=== PATIENT | female | born 1960 | race Caucasian/White ===

== ENCOUNTER 2018-08-28 15:49 | Inpatient (IN) | payer BC ==
[2018-08-28] VITALS (7 sets, daily range): BP systolic 107–154; BP diastolic 58–75
[~2018-08-28] VITALS: Ht 167.6 cm; Wt 70.8 kg
[2018-08-28] MEDS ORDERED: diazePAM 5 MG TABLET PO ONE (16:15)
[2018-08-28] MEDS ORDERED: KETOROLAC 60 MG/2 ML VIAL. IM ONE (16:15)
[2018-08-28] MEDS ORDERED: MORPHINE SULFATE 10 MG/ML VIAL. IM ONE (16:15)
[2018-08-28] MEDS ORDERED: methylPREDNISolone SOD SUCC PF 125 MG/2 ML VIAL. IM ONE (16:15)
[2018-08-28] MEDS ORDERED: KETOROLAC 30 MG/ML VIAL. IV ONE (16:30)
[2018-08-28] MEDS ORDERED: methylPREDNISolone SOD SUCC PF 125 MG/2 ML VIAL. IV ONE (16:30)
[2018-08-28] MEDS ORDERED: MORPHINE SULFATE 10 MG/ML VIAL. IV ONE (16:30)
[2018-08-28] MEDS ORDERED: HYDROcodone/APAP 5/325MG 1 TAB TABLET PO ONE (18:15)
--- NOTE | 2018-08-28 18:58 | PHYS DOC ---
Past Medical History Past Medical History: Fibromyalgia, GERD, High Cholesterol (ALEJANDRA ALONZO APRN) Past Surgical History: Cervical Fusion, Lumbar Laminectomy (ALEJANDRA ALONZO APRN) Alcohol Use: None Drug Use: None (ALEJANDRA ALONZO APRN) Adult General Chief Complaint Chief Complaint: LOWER BACK PAIN OR INJURY HPI HPI Patient is a 57 year old female with a history of fibromyalgia, neck surgeries, who presents to the ED today complaining of severe low back pain that began today. Patient states she was walking her dog, she states the dog is approximately 200 pounds, the dog was on a leash, the dog started chasing after somebody else and pulled her. Patient states since then she's had pain. Patient states the pain radiates to the right lower extremity. Denies any loss of bowel bladder function. Denies any numbness to bilateral lower extremities. (ALEJANDRA ALONZO APRN) Review of Systems Review of Systems Constitutional: Denies fever or chills [] GI: Denies abdominal pain, nausea, vomiting, bloody stools or diarrhea [] : Denies dysuria or hematuria [] Musculoskeletal: Reports low back pain Integument: Denies rash or skin lesions [] Neurologic: Denies headache, focal weakness or sensory changes [] All other systems were reviewed and found to be within normal limits, except as documented in this note. (ALEJANDRA ALONZO APRN) Current Medications Current Medications Current Medications Medications (Trade) Dose Ordered Sig/João Start Time Stop Time Status Last Admin Dose Admin Acetaminophen/ Hydrocodone Bitart (Lortab 5/325) 1 tab 1X ONCE 08/28/18 18:15 08/28/18 18:16 DC 08/28/18 18:18 1 TAB Diazepam (Valium) 5 mg 1X ONCE 08/28/18 16:15 08/28/18 16:16 DC 08/28/18 16:25 5 MG Ketorolac Tromethamine (Toradol 30mg Vial) 30 mg 1X ONCE 08/28/18 16:30 08/28/18 16:32 DC 08/28/18 16:36 30 MG Ketorolac Tromethamine (Toradol Im) 60 mg 1X ONCE 08/28/18 16:15 08/28/18 16:31 DC Methylprednisolone Sodium Succinate (SOLU-Medrol 125MG VIAL) 125 mg 1X ONCE 08/28/18 16:30 5/30/19 16:32 DC 08/28/18 16:33 125 MG Morphine Sulfate (Morphine Sulfate) 5 mg 1X ONCE 08/28/18 16:30 08/28/18 16:32 DC 08/28/18 16:33 5 MG (BRENDON HOLLAND DO) Allergies Allergies Allergies Coded Allergies Type Severity Reaction Last Updated Verified No Known Drug Allergies 08/28/18 No (BRENDON HOLLAND DO) Physical Exam Physical Exam Constitutional: Well developed, well nourished, no acute distress, non-toxic appearance. [] Skin: Warm, dry, no erythema, no rash. [] Back: Patient is laying on her back and states she is not able to turn to either side. She is moving all extremities. Tenderness on palpation of the right SI joint. Positive straight leg raise to the right lower extremity at approximately 45 him a negative straight leg raises to the left. Tenderness, no CVA Extremities: No tenderness, no cyanosis, no clubbing, ROM intact, no edema. [] Neurologic: Alert and oriented X 3, normal motor function, normal sensory function, no focal deficits noted. [] Psychologic: Affect normal, judgement normal, mood normal. [] (ALEJANDRA ALONZO APRN) Current Patient Data Vital Signs Vital Signs Date Time Temp Pulse Resp B/P (MAP) Pulse Ox O2 Delivery O2 Flow Rate FiO2 08/28/18 15:53 98.6 80 20 135/61 (85) 98 Room Air 98.6 (BRENDON HOLLAND DO) EKG EKG [] (ALEJANDRA ALONZO APRN) Radiology/Procedures Radiology/Procedures [] (ALEJANDRA ALONZO APRN) Course & Med Decision Making Course & Med Decision Making Pertinent Labs and Imaging studies reviewed. (See chart for details) This is a 57-year-old female patient presented to the ED today with low back pain, patient was walking her 100 pound dog which started chasing after someone and pulled her. Lumbar spine x-rays interpreted by Dr. Molina were negative for any acute findings. Patient has no cauda equina syndrome symptoms. Results were given to patient and , they started complaining stating they came here to get an MRI not just on x-ray. I explained to them we don't do any MRIs in the emergency room unless somebody has cauda equina syndrome symptoms. He continued complaining stating they could've gone to a different hospital naming a couple of them including [facility]. Informed them the care provided in the ED today is up to the stand provided by other hospitals for the same complained. requested I contact Dr. Perez. I spoke to Milana [facility] for Dr. Perez, she stated we can and the patient for intractable back pain until follow-up with her tomorrow. Consulted with Dr. Noonan who accepted patient for admission. (ALEJANDRA ALONZO APRN) Dragon Disclaimer Dragon Disclaimer This electronic medical record was generated, in whole or in part, using a voice recognition dictation system. (ALEJANDRA ALONZO APRN) Departure Departure Impression: Primary Impression: Intractable back pain Additional Impression: Lumbosacral strain Disposition: ADMITTED INPATIENT Condition: STABLE Referrals: NICHO HOWELL MD (PCP) Scripts Ketorolac Tromethamine (KETOROLAC TROMETHAMINE) 10 Mg Tablet 1 TAB PO TID for pain, #15 TAB Prov: DONELL LONG MD 08/29/18 Baclofen (BACLOFEN) 10 Mg Tablet 10 MG PO TID for muscle relaxant for 10 Days, #30 TAB Prov: DONELL LONG MD 08/29/18 Attending Signature Attending Signature I have reviewed the PA/[facility]'s note and plan of care. I was available for consu ltation as needed during the patient's visit in the emergency department. I agree with the clinical impression, plan, and disposition. (BRENDON HOLLAND DO) Problem Qualifiers Additional Impression: Lumbosacral strain Encounter type: initial encounter Qualified Codes: S39.012A - Strain of muscle, fascia and tendon of lower back, initial encounter ALEJANDRA ALONZO APRN August 28, 2018 18:58 BRENDON HOLLAND DO Sep 02, 2018 06:33
[2018-08-28] MEDS ORDERED: ONDANSETRON PF 4 MG/2 ML VIAL. IV PRN (19:00)
[2018-08-28] MEDS ORDERED: ACETAMINOPHEN 325 MG TABLET. PO PRN (19:00)
--- NOTE | 2018-08-28 19:07 | PDOC1 ---
History and Physical Date of Admission: Date of Admission DATE: 08/28/18 TIME: 19:04 Chief Complaint: Problems: (1) Lumbosacral strain (2) Intractable back pain Chief Complain: Back pain History of Present Illness: HPI: This is a middle-aged white female who has known radiculopathy in fact she's had several back surgeries including hardware in her neck and she's had several lumbar surgeries as well Today she was walking her 200 pound dog they began to monie somebody she tried to hold the dog back she fell Now she has 10 out of 10 back pain she is in tears It's worse with moving better with sitting still home meds did not take care of the pain I discussed the case with ER physician were going to with patient consult her neurosurgeon Dr. 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 Current Medications: Current Medications Current Medications Ketorolac Tromethamine (Toradol Im) 60 mg 1X ONCE IM ; Start 08/28/18 at 16:15; Stop 08/28/18 at 16:31; Status DC Morphine Sulfate (Morphine Sulfate) 5 mg 1X ONCE IM ; Start 08/28/18 at 16:15; Stop 08/28/18 at 16:31; Status DC Diazepam (Valium) 5 mg 1X ONCE PO Last administered on 08/28/18at 16:25; Start 08/28/18 at 16:15; Stop 08/28/18 at 16:16; Status DC Methylprednisolone Sodium Succinate (SOLU-Medrol 125MG VIAL) 125 mg 1X ONCE IM ; Start 08/28/18 at 16:15; Stop 08/28/18 at 16:31; Status DC Morphine Sulfate (Morphine Sulfate) 5 mg 1X ONCE IV Last administered on 08/28/18at 16:33; Start 08/28/18 at 16:30; Stop 08/28/18 at 16:32; Status DC Ketorolac Tromethamine (Toradol 30mg Vial) 30 mg 1X ONCE IV Last administered on 08/28/18at 16:36; Start 08/28/18 at 16:30; Stop 08/28/18 at 16:32; Status DC Methylprednisolone Sodium Succinate (SOLU-Medrol 125MG VIAL) 125 mg 1X ONCE IV Last administered on 08/28/18at 16:33; Start 08/28/18 at 16:30; Stop 08/28/18 at 16:32; Status DC Acetaminophen/ Hydrocodone Bitart (Lortab 5/325) 1 tab 1X ONCE PO Last administered on 08/28/18at 18:18; Start 08/28/18 at 18:15; Stop 08/28/18 at 18:16; Status DC Ondansetron HCl (Zofran) 4 mg PRN Q8HRS PRN IV NAUSEA/VOMITING; Start 08/28/18 at 19:00; Stop 08/29/18 at 18:59 Morphine Sulfate (Morphine Sulfate) 4 mg PRN Q2HR PRN IV PAIN; Start 08/28/18 at 19:00; Stop 08/29/18 at 18:59 Acetaminophen (Tylenol) 650 mg PRN Q4HRS PRN PO FEVER; Start 08/28/18 at 19:00; Stop 08/29/18 at 18:59 ROS: Review of Systems Review of System REVIEW OF SYSTEMS: GENERAL: She she is crying EYES: No blurred, double or loss of vision. NOSE AND THROAT: No history of nosebleeds, hoarseness or sore throat. HEART: No history of palpitations, chest pain or shortness of breath on exertion. LUNGS: Denies cough, hemoptysis, wheezing or shortness of breath. GASTROINTESTINAL: Denies changes in appetite, nausea, vomiting, diarrhea or constipation. GENITOURINARY: No history of frequency, urgency, hesitancy or nocturia. NEUROLOGIC: She has lower leg weakness PSYCHIATRIC: She combines of depression ENDOCRINE: No history of heat or cold intolerance, polyuria or polydipsia. EXTREMITIES: Denies muscle weakness, joint pain, pain on walking or stiffness. Physical Exam: Vital Signs: Vital Signs Date Time Temp Pulse Resp B/P (MAP) Pulse Ox O2 Delivery O2 Flow Rate FiO2 08/28/18 15:53 98.6 80 20 135/61 (85) 98 Room Air 98.6 Physcial Exam: GEN.: She is crying in obvious pain HEENT: Head is normocephalic, atraumatic NECK: Supple, no JVD LUNGS: Clear to auscultation without rhonchi or wheezing HEART: RRR, S1, S2 present. Peripheral pulses intact ABDOMEN: Soft, nontender. Positive bowel sounds no organomegaly EXTREMITIES: Without any cyanosis, clubbing, or edema. Pedal pulses intact NEUROLOGIC: Her legs are weak she is crying PSYCHIATRIC: She is crying SKIN: No ulcerations or rashes VASCULAR: Good capillary refill Images: Images Images of the lower spine are pending Assessment/Plan Assessment/Plan Acute on chronic radicular pain after a fall Plan I offered IV steroids she doesn't want IV narcotics When necessary muscle spasm meds consult Dr. Edison Wise Home meds PT OT Frequent labs DVT prophylaxis Full code JAMAAL SUN III DO August 28, 2018 19:07
--- NOTE | 2018-08-28 19:10 | RAD ---
Three-view lumbar spine radiographs 08/01/2018 CLINICAL HISTORY: Low back pain post dog pulling injury. AP and 2 lateral digital radiographs of the lumbar spine were obtained. Surgical clips are seen within the right upper quadrant of the abdomen consistent with a cholecystectomy. Very mild S-shaped curvature of the thoracolumbar spine is seen. No fracture or subluxation of the lumbar vertebrae seen. Degenerative changes are seen throughout the lower thoracic and throughout the lumbar disc spaces consisting of vertebral endplate sclerosis and minimal to mild anterior and posterior vertebral body osteophyte formation. Disc space narrowing is seen at L5-S1. Degenerative changes are seen involving the facet joints at L4-5 and L5-S1. Atherosclerotic calcification of the abdominal aorta and its branches is noted. IMPRESSION: Degenerative changes are seen involving the lumbar spine as outlined above. No acute osseous abnormality is seen. Electronically signed by: Lawrence Ge MD (08/28/2018 7:08 PM) [facility]
[2018-08-28] MEDS: MORPHINE SULFATE 4 MG/ML VIAL. IV PRN ×3 (19:12→23:20)
[2018-08-28 19:21] LABS: BASO % 0 % (0-3); EOS % 0 % (0-3); HEMATOCRIT 37.4 % (36.0-47.0); HEMOGLOBIN 12.6 g/dL (12.0-15.5); LYMPH # 1.1 x10^3/uL (1.0-4.8); LYMPH % 16 % (24-48); MEAN CORPUSCULAR HEMOGLOBIN 29 pg (25-35); MEAN CORPUSCULAR HGB CONC 34 g/dL (31-37); MEAN CORPUSCULAR VOLUME 85 fL (79-100); MONO # 0.2 x10^3/uL (0.0-1.1); MONO % 3 % (0-9); NEUT # 5.6 x10^3uL (1.8-7.7); NEUT % 81 % (31-73); PLATELET COUNT 209 x10^3/uL (140-400); RED BLOOD COUNT 4.38 x10^6/uL (3.50-5.40); RED CELL DISTRIBUTION WIDTH 14.7 % (11.5-14.5); WHITE BLOOD COUNT 6.9 x10^3/uL (4.0-11.0)
[2018-08-28 19:31] LABS: PROTHROMBIN TIME PATIENT 14.1 SEC (11.7-14.0)
[2018-08-28 19:35] LABS: CALCIUM 9.8 mg/dL (8.5-10.1); CREATININE 0.8 mg/dL (0.6-1.0); GFR 74.2; POTASSIUM 3.8 mmol/L (3.5-5.1)
--- NOTE | 2018-08-28 19:36 | NUR ---
The patient, PRADEEP MCKEON, 57 y/o, F admitted by JAMAAL SUN III, DO, was given written information regarding hospital policies, unit procedures and contact persons. Pt was transported from ED to room 408 via bed with pt's at bedside. RN performed a head to toe assessment at that time, VSS, pain rated 7/10, and afebrile. Bed in lowest locked position and call light within reach. Orders were received and implemented at that time. Valuables were checked and left in the room with the patient. RN will continue to monitor patient closely.
--- NOTE | 2018-08-28 21:46 | NUR ---
RN paged MD to get a sleep aid for the patient. Orders were received and implemented at that time.
[2018-08-28] MEDS ORDERED: TEMAZEPAM 15 MG CAPSULE PO PRN (22:00)
[2018-08-29 00:07] VITALS: BP 100/55
[2018-08-29] MEDS ORDERED: EZET10TA48 PO (01:22)
[2018-08-29] MEDS: MORPHINE SULFATE 4 MG/ML VIAL. IV PRN ×4 (02:32→13:31)
[2018-08-29 03:00] VITALS: BP 110/62
[2018-08-29 07:00] VITALS: BP 109/58
[2018-08-29] MEDS ORDERED: KETOROLAC 30 MG/ML VIAL. IV PRN (09:45)
[2018-08-29] MEDS: BACLOFEN 10 MG TABLET. PO SCH ×2 (09:54→13:29)
--- NOTE | 2018-08-29 10:57 | NUR ---
SW following for discharge planning. Discussed with RN, pt is from home with , daughter is involved. Pt having an MRI today. RN advised no SW needs at this time. SW will continue to follow.
[2018-08-29 11:00] VITALS: BP 108/46
--- NOTE | 2018-08-29 12:55 | PDOC ---
PROGRESS NOTES Chief Complaint Chief Complaint my back hurts History of Present Illness History of Present Illness Patient still in a lot of pain and quite uncomfortable, patient denies fever chills, no cough or sputum production was reported. Patient was reassured, plan of care discussed in detail. All concerns addressed to the best of my abilities. Vitals Vitals Vital Signs Date Time Temp Pulse Resp B/P (MAP) Pulse Ox O2 Delivery O2 Flow Rate FiO2 08/29/18 11:00 97.9 57 20 108/46 (66) 100 Room Air 97.9 08/28/18 22:42 95.0 Physical Exam General: Alert, Oriented X3, Cooperative, moderate distress Heart: Regular rate, Normal S1, Normal S2 Lungs: Clear, Wheezing Abdomen: Soft, No hepatosplenomegaly Extremities: No clubbing, No cyanosis Skin: No rashes, No breakdown Labs LABS Laboratory Tests Test 08/28/18 19:00 White Blood Count 6.9 x10^3/uL (4.0-11.0) Red Blood Count 4.38 x10^6/uL (3.50-5.40) Hemoglobin 12.6 g/dL (12.0-15.5) Hematocrit 37.4 % (36.0-47.0) Mean Corpuscular Volume 85 fL (79-100) Mean Corpuscular Hemoglobin 29 pg (25-35) Mean Corpuscular Hemoglobin Concent 34 g/dL (31-37) Red Cell Distribution Width 14.7 % (11.5-14.5) Platelet Count 209 x10^3/uL (140-400) Neutrophils (%) (Auto) 81 % (31-73) Lymphocytes (%) (Auto) 16 % (24-48) Monocytes (%) (Auto) 3 % (0-9) Eosinophils (%) (Auto) 0 % (0-3) Basophils (%) (Auto) 0 % (0-3) Neutrophils # (Auto) 5.6 x10^3uL (1.8-7.7) Lymphocytes # (Auto) 1.1 x10^3/uL (1.0-4.8) Monocytes # (Auto) 0.2 x10^3/uL (0.0-1.1) Eosinophils # (Auto) 0.0 x10^3/uL (0.0-0.7) Basophils # (Auto) 0.0 x10^3/uL (0.0-0.2) Prothrombin Time 14.1 SEC (11.7-14.0) Prothromb Time International Ratio 1.1 (0.8-1.1) Activated Partial Thromboplast Time 39 SEC (24-38) Sodium Level 138 mmol/L (136-145) Potassium Level 3.8 mmol/L (3.5-5.1) Chloride Level 100 mmol/L (98-107) Carbon Dioxide Level 26 mmol/L (21-32) Anion Gap 12 (6-14) Blood Urea Nitrogen 11 mg/dL (7-20) Creatinine 0.8 mg/dL (0.6-1.0) Estimated GFR (Cockcroft-Gault) 74.2 Glucose Level 130 mg/dL (70-99) Calcium Level 9.8 mg/dL (8.5-10.1) Ethyl Alcohol Level < 10 mg/dL (0-10) Review of Systems Review of Systems pertinent as per hpi otherwise 13 point reviewe of system ins negative. Assessment and Plan Assessmemt and Plan Problems Medical Problems: (1) Intractable back pain Status: Acute (2) Lumbosacral strain Status: Acute Comment Review of Relevant I have reviewed the following items chantal (where applicable) has been applied. Labs Laboratory Tests Test 08/28/18 19:00 White Blood Count 6.9 x10^3/uL (4.0-11.0) Red Blood Count 4.38 x10^6/uL (3.50-5.40) Hemoglobin 12.6 g/dL (12.0-15.5) Hematocrit 37.4 % (36.0-47.0) Mean Corpuscular Volume 85 fL (79-100) Mean Corpuscular Hemoglobin 29 pg (25-35) Mean Corpuscular Hemoglobin Concent 34 g/dL (31-37) Red Cell Distribution Width 14.7 % (11.5-14.5) Platelet Count 209 x10^3/uL (140-400) Neutrophils (%) (Auto) 81 % (31-73) Lymphocytes (%) (Auto) 16 % (24-48) Monocytes (%) (Auto) 3 % (0-9) Eosinophils (%) (Auto) 0 % (0-3) Basophils (%) (Auto) 0 % (0-3) Neutrophils # (Auto) 5.6 x10^3uL (1.8-7.7) Lymphocytes # (Auto) 1.1 x10^3/uL (1.0-4.8) Monocytes # (Auto) 0.2 x10^3/uL (0.0-1.1) Eosinophils # (Auto) 0.0 x10^3/uL (0.0-0.7) Basophils # (Auto) 0.0 x10^3/uL (0.0-0.2) Prothrombin Time 14.1 SEC (11.7-14.0) Prothromb Time International Ratio 1.1 (0.8-1.1) Activated Partial Thromboplast Time 39 SEC (24-38) Sodium Level 138 mmol/L (136-145) Potassium Level 3.8 mmol/L (3.5-5.1) Chloride Level 100 mmol/L (98-107) Carbon Dioxide Level 26 mmol/L (21-32) Anion Gap 12 (6-14) Blood Urea Nitrogen 11 mg/dL (7-20) Creatinine 0.8 mg/dL (0.6-1.0) Estimated GFR (Cockcroft-Gault) 74.2 Glucose Level 130 mg/dL (70-99) Calcium Level 9.8 mg/dL (8.5-10.1) Ethyl Alcohol Level < 10 mg/dL (0-10) Laboratory Tests Test 08/28/18 19:00 White Blood Count 6.9 x10^3/uL (4.0-11.0) Red Blood Count 4.38 x10^6/uL (3.50-5.40) Hemoglobin 12.6 g/dL (12.0-15.5) Hematocrit 37.4 % (36.0-47.0) Mean Corpuscular Volume 85 fL (79-100) Mean Corpuscular Hemoglobin 29 pg (25-35) Mean Corpuscular Hemoglobin Concent 34 g/dL (31-37) Red Cell Distribution Width 14.7 % (11.5-14.5) Platelet Count 209 x10^3/uL (140-400) Neutrophils (%) (Auto) 81 % (31-73) Lymphocytes (%) (Auto) 16 % (24-48) Monocytes (%) (Auto) 3 % (0-9) Eosinophils (%) (Auto) 0 % (0-3) Basophils (%) (Auto) 0 % (0-3) Neutrophils # (Auto) 5.6 x10^3uL (1.8-7.7) Lymphocytes # (Auto) 1.1 x10^3/uL (1.0-4.8) Monocytes # (Auto) 0.2 x10^3/uL (0.0-1.1) Eosinophils # (Auto) 0.0 x10^3/uL (0.0-0.7) Basophils # (Auto) 0.0 x10^3/uL (0.0-0.2) Prothrombin Time 14.1 SEC (11.7-14.0) Prothromb Time International Ratio 1.1 (0.8-1.1) Activated Partial Thromboplast Time 39 SEC (24-38) Sodium Level 138 mmol/L (136-145) Potassium Level 3.8 mmol/L (3.5-5.1) Chloride Level 100 mmol/L (98-107) Carbon Dioxide Level 26 mmol/L (21-32) Anion Gap 12 (6-14) Blood Urea Nitrogen 11 mg/dL (7-20) Creatinine 0.8 mg/dL (0.6-1.0) Estimated GFR (Cockcroft-Gault) 74.2 Glucose Level 130 mg/dL (70-99) Calcium Level 9.8 mg/dL (8.5-10.1) Ethyl Alcohol Level < 10 mg/dL (0-10) Medications Current Medications Ketorolac Tromethamine (Toradol Im) 60 mg 1X ONCE IM ; Start 08/28/18 at 16:15; Stop 08/28/18 at 16:31; Status DC Morphine Sulfate (Morphine Sulfate) 5 mg 1X ONCE IM ; Start 08/28/18 at 16:15; Stop 08/28/18 at 16:31; Status DC Diazepam (Valium) 5 mg 1X ONCE PO Last administered on 08/28/18at 16:25; Start 08/28/18 at 16:15; Stop 08/28/18 at 16:16; Status DC Methylprednisolone Sodium Succinate (SOLU-Medrol 125MG VIAL) 125 mg 1X ONCE IM ; Start 08/28/18 at 16:15; Stop 08/28/18 at 16:31; Status DC Morphine Sulfate (Morphine Sulfate) 5 mg 1X ONCE IV Last administered on 08/28/18at 16:33; Start 08/28/18 at 16:30; Stop 08/28/18 at 16:32; Status DC Ketorolac Tromethamine (Toradol 30mg Vial) 30 mg 1X ONCE IV Last administered on 08/28/18at 16:36; Start 08/28/18 at 16:30; Stop 08/28/18 at 16:32; Status DC Methylprednisolone Sodium Succinate (SOLU-Medrol 125MG VIAL) 125 mg 1X ONCE IV Last administered on 08/28/18at 16:33; Start 08/28/18 at 16:30; Stop 08/28/18 at 16:32; Status DC Acetaminophen/ Hydrocodone Bitart (Lortab 5/325) 1 tab 1X ONCE PO Last administered on 08/28/18at 18:18; Start 08/28/18 at 18:15; Stop 08/28/18 at 18:16; Status DC Ondansetron HCl (Zofran) 4 mg PRN Q8HRS PRN IV NAUSEA/VOMITING; Start 08/28/18 at 19:00; Stop 08/29/18 at 18:59 Morphine Sulfate (Morphine Sulfate) 4 mg PRN Q2HR PRN IV PAIN Last administered on 08/29/18at 07:48; Start 08/28/18 at 19:00; Stop 08/29/18 at 18:59 Acetaminophen (Tylenol) 650 mg PRN Q4HRS PRN PO FEVER; Start 08/28/18 at 19:00; Stop 08/29/18 at 18:59 Temazepam (Restoril) 15 mg PRN QHS PRN PO INSOMNIA Last administered on 08/28/18at 23:00; Start 08/28/18 at 22:00 Baclofen (Lioresal) 10 mg TID PO Last administered on 08/29/18at 09:54; Start 08/29/18 at 10:30 Ketorolac Tromethamine (Toradol 30mg Vial) 30 mg PRN Q6HRS PRN IV PAIN Last administered on 08/29/18at 09:55; Start 08/29/18 at 09:45; Stop 09/03/18 at 09:44 Active Scripts Active Reported Ezetimibe 10 Mg Tablet 10 Mg PO DAILY Vitals/I & O Vital Sign - Last 24 Hours 08/28/18 08/28/18 08/28/18 08/28/18 15:53 19:36 19:36 20:22 Temp 98.6 97.5 98.6 97.5 Pulse 80 60 48 Resp 20 18 18 B/P (MAP) 135/61 (85) 154/59 (90) 118/75 (89) Pulse Ox 98 96 98 O2 Delivery Room Air Room Air Room Air Room Air 08/28/18 08/28/18 08/28/18 08/28/18 20:37 21:14 22:07 22:42 Pulse 53 63 54 Resp 18 18 18 B/P (MAP) 115/69 (84) 117/63 (81) 107/58 (74) Pulse Ox 96 96 96 O2 Delivery Room Air Room Air Room Air Room Air O2 Flow Rate 95.0 08/28/18 08/28/18 08/28/18 08/29/18 23:00 23:07 23:20 00:07 Temp 97.5 97.5 Pulse 63 56 59 Resp 18 18 18 B/P (MAP) 132/66 (88) 115/63 (80) 100/55 (70) Pulse Ox 97 95 93 O2 Delivery Room Air Room Air Room Air Room Air 08/29/18 08/29/18 08/29/18 08/29/18 02:32 03:00 04:51 07:00 Temp 97.7 97.4 97.7 97.4 Pulse 57 59 Resp 18 18 B/P (MAP) 110/62 (78) 109/58 (75) Pulse Ox 94 96 O2 Delivery Room Air Room Air Room Air Room Air 08/29/18 08/29/18 08/29/18 08/29/18 07:22 07:48 08:21 11:00 Temp 97.9 97.9 Pulse 57 Resp 20 B/P (MAP) 108/46 (66) Pulse Ox 94 94 100 O2 Delivery Room Air Room Air Room Air Room Air Intake and Output 08/28/18 08/28/18 08/29/18 14:59 22:59 06:59 Intake Total 0 ml 1000 ml Balance 0 ml 1000 ml DONELL LONG MD August 29, 2018 12:55
--- NOTE | 2018-08-29 14:51 | RAD ---
MRI Lumbar Spine without contrast History: Fall, severe back pain Technique: Multiplanar, multi sequential noncontrast MR imaging was performed of the lumbar spine. Comparison: None Findings: Lumbar vertebral body stature and AP alignment are maintained. There is fairly advanced degenerative disc disease at L5-S1, mild disc desiccation L4-5. There is edema of the anterior, inferior corner of L2 not associated with significant height loss or defined fracture plane. There is also trace edema of the anterior, inferior corner of L1. There is posterior annular tear L4-5. Conus terminates near L1-2. L2-L3: Spinal canal and neural foramina are adequate. L3-L4: There is minimal facet degenerative change and buckling of the ligamentum flavum. There is some fluid in the facet articulations. Spinal canal and neural foramina are adequate. L4-L5: There is minimal facet degenerative change. Neural foramina and spinal canal are adequate. L5-S1: There is left laminectomy defect. There is broad posterior disc osteophyte complex near the ventral surfaces of the descending S1 nerve roots bilaterally without significant posterior displacement or significant spinal stenosis. There is minimal narrowing of the inferior left neural foramen, right neural foramen overall adequate. Impression: 1. There is fairly advanced degenerative disc disease L5-S1. There is broad disc osteophyte complex at L5-S1 near the descending S1 nerve roots without significant displacement. There is no significant lumbar spinal stenosis. There is minimal narrowing of the left L5-S1 neural foramen. There is edema of the anterior, inferior corner of L2 and very minimally at more likely reactive in etiology, no defined fracture plane or height loss. Electronically signed by: Steven Crowder MD (08/29/2018 2:48 PM) [id number]
[2018-08-29 15:03] VITALS: BP 121/55
[2018-08-29] MEDS ORDERED: BACL10TA PO (15:46)
[2018-08-29] MEDS ORDERED: KETO10TA PO (15:46)
--- NOTE | 2018-08-29 15:48 | PDOC3 ---
Discharge Summary Visit Information Date of Admission: August 28, 2018 Date of Discharge: August 29, 2018 Admitting Diagnosis: intractable back pain Final Diagnosis Problems Medical Problems: (1) Intractable back pain Status: Acute (2) Lumbosacral strain Status: Acute Brief Hospital Course Allergies Allergies Coded Allergies Type Severity Reaction Last Updated Verified No Known Drug Allergies 08/28/18 No Vital Signs Vital Signs Date Time Temp Pulse Resp B/P (MAP) Pulse Ox O2 Delivery O2 Flow Rate FiO2 08/29/18 15:03 97.7 60 20 121/55 (77) 95 Room Air 97.7 08/28/18 22:42 95.0 Lab Results Laboratory Tests Test 08/28/18 19:00 White Blood Count 6.9 x10^3/uL (4.0-11.0) Red Blood Count 4.38 x10^6/uL (3.50-5.40) Hemoglobin 12.6 g/dL (12.0-15.5) Hematocrit 37.4 % (36.0-47.0) Mean Corpuscular Volume 85 fL (79-100) Mean Corpuscular Hemoglobin 29 pg (25-35) Mean Corpuscular Hemoglobin Concent 34 g/dL (31-37) Red Cell Distribution Width 14.7 % (11.5-14.5) Platelet Count 209 x10^3/uL (140-400) Neutrophils (%) (Auto) 81 % (31-73) Lymphocytes (%) (Auto) 16 % (24-48) Monocytes (%) (Auto) 3 % (0-9) Eosinophils (%) (Auto) 0 % (0-3) Basophils (%) (Auto) 0 % (0-3) Neutrophils # (Auto) 5.6 x10^3uL (1.8-7.7) Lymphocytes # (Auto) 1.1 x10^3/uL (1.0-4.8) Monocytes # (Auto) 0.2 x10^3/uL (0.0-1.1) Eosinophils # (Auto) 0.0 x10^3/uL (0.0-0.7) Basophils # (Auto) 0.0 x10^3/uL (0.0-0.2) Prothrombin Time 14.1 SEC (11.7-14.0) Prothromb Time International Ratio 1.1 (0.8-1.1) Activated Partial Thromboplast Time 39 SEC (24-38) Sodium Level 138 mmol/L (136-145) Potassium Level 3.8 mmol/L (3.5-5.1) Chloride Level 100 mmol/L (98-107) Carbon Dioxide Level 26 mmol/L (21-32) Anion Gap 12 (6-14) Blood Urea Nitrogen 11 mg/dL (7-20) Creatinine 0.8 mg/dL (0.6-1.0) Estimated GFR (Cockcroft-Gault) 74.2 Glucose Level 130 mg/dL (70-99) Calcium Level 9.8 mg/dL (8.5-10.1) Ethyl Alcohol Level < 10 mg/dL (0-10) Laboratory Tests Test 08/28/18 19:00 White Blood Count 6.9 x10^3/uL (4.0-11.0) Red Blood Count 4.38 x10^6/uL (3.50-5.40) Hemoglobin 12.6 g/dL (12.0-15.5) Hematocrit 37.4 % (36.0-47.0) Mean Corpuscular Volume 85 fL (79-100) Mean Corpuscular Hemoglobin 29 pg (25-35) Mean Corpuscular Hemoglobin Concent 34 g/dL (31-37) Red Cell Distribution Width 14.7 % (11.5-14.5) Platelet Count 209 x10^3/uL (140-400) Neutrophils (%) (Auto) 81 % (31-73) Lymphocytes (%) (Auto) 16 % (24-48) Monocytes (%) (Auto) 3 % (0-9) Eosinophils (%) (Auto) 0 % (0-3) Basophils (%) (Auto) 0 % (0-3) Neutrophils # (Auto) 5.6 x10^3uL (1.8-7.7) Lymphocytes # (Auto) 1.1 x10^3/uL (1.0-4.8) Monocytes # (Auto) 0.2 x10^3/uL (0.0-1.1) Eosinophils # (Auto) 0.0 x10^3/uL (0.0-0.7) Basophils # (Auto) 0.0 x10^3/uL (0.0-0.2) Prothrombin Time 14.1 SEC (11.7-14.0) Prothromb Time International Ratio 1.1 (0.8-1.1) Activated Partial Thromboplast Time 39 SEC (24-38) Sodium Level 138 mmol/L (136-145) Potassium Level 3.8 mmol/L (3.5-5.1) Chloride Level 100 mmol/L (98-107) Carbon Dioxide Level 26 mmol/L (21-32) Anion Gap 12 (6-14) Blood Urea Nitrogen 11 mg/dL (7-20) Creatinine 0.8 mg/dL (0.6-1.0) Estimated GFR (Cockcroft-Gault) 74.2 Glucose Level 130 mg/dL (70-99) Calcium Level 9.8 mg/dL (8.5-10.1) Ethyl Alcohol Level < 10 mg/dL (0-10) Brief Hospital Course This is a middle-aged white female who has known radiculopathy in fact she's had several back surgeries including hardware in her neck and she's had several lumbar surgeries as well Today she was walking her 200 pound dog they began to monie somebody she tried to hold the dog back she fell Now she has 10 out of 10 back pain she is in tears It's worse with moving better with sitting still home meds did not take care of the pain I discussed the case with ER physician were going to with patient consult her neurosurgeon Dr. Edison Wise Patient seen in consultation by Dr. Wise MRI done no surgical intervention was deemed appropriate at the present time or warranted. Patient seems to have improved with NSAIDs and muscle relaxants. The patient will be given a prescription for Toradol and baclofen moving forward. I have advised her to follow up with her primary care physician, signs and symptoms of alarm were discussed prior to dismissal the patient is in good spirits to be discharged home now that her discomfort has been treated. All concerns were addressed to the best of my abilities prior to discharge Results off her MRI is as follows: 1. There is fairly advanced degenerative disc disease L5-S1. There is broad disc osteophyte complex at L5-S1 near the descending S1 nerve roots without significant displacement. There is no significant lumbar spinal stenosis. There is minimal narrowing of the left L5-S1 neural foramen. There is edema of the anterior, inferior corner of L2 and very minimally at more likely reactive in etiology, no defined fracture plane or height loss. Electronically signed by: Steven Crowder MD (08/29/2018 2:48 PM) [email or web address] Dis[facility] Information Condition at Discharge: Improved Follow Up: Weeks Disposition/Orders: D/C to Home Scheduled Baclofen (Baclofen) 10 Mg Tablet, 10 MG PO TID for muscle relaxant for 10 Days, #30 Prescribed by: DONELL LONG MD on 08/29/18 1546 Ezetimibe (Ezetimibe) 10 Mg Tablet, 10 MG PO DAILY for high cholesterol, (Reported) Entered as Reported by: JESÚS SYKES on 08/29/18121 Last Action: New Order on 08/29/18121 by JESÚS SYKES Ketorolac Tromethamine (Ketorolac Tromethamine) 10 Mg Tablet, 1 TAB PO TID for pain, #15 Prescribed by: DONELL LONG MD on 08/29/18 1546 DONELL LONG MD August 29, 2018 15:48
--- NOTE | 2018-08-29 16:15 | NUR ---
Discharge Note: PRADEEP MCKEON Discharge instructions and discharge home medications reviewed with Patient and a copy given. All questions have been answered and understanding verbalized. The following instructions and handouts were given: information about lumbar sacral strain and back pain. Discontinued lines and drains: IV line in right AC removed, catheter tip intact. Patient discharged to home with self care with , wheelchair used for mobility to discharge vehicle.
== END 2018-08-29 16:15 | disposition home or self-care (01) | DRG 552 ==
LOC: ER 15:49 → 4 NORTH 18:49
PROVIDERS: ADMIT Internal Medicine; ATTEND Internal Medicine
DX: M51.17 Intervertebral disc disorders with radiculopathy, lumbosacral region (principal); S39.012A Strain of muscle, fascia and tendon of lower back, initial encounter; E78.00 Pure hypercholesterolemia, unspecified; K21.9 Gastro-esophageal reflux disease without esophagitis; M25.78 Osteophyte, vertebrae; W18.39XA Other fall on same level, initial encounter; M79.7 Fibromyalgia; Y93.K1 Activity, walking an animal; Z82.49 Family history of ischemic heart disease and other diseases of the circulatory system; Z79.899 Other long term (current) drug therapy; Y92.89 Other specified places as the place of occurrence of the external cause; Y99.8 Other external cause status
CPT/HCPCS: 36415; 72100; 72148; 80048; 85025; 85610; 85730; G0480; J1885; J2270; J2930